=== PATIENT | female | born 1945 | race Caucasian/White ===

== ENCOUNTER 2016-07-28 08:06 | Day surgery (SDC) | payer BC ==
--- NOTE | ~2016-07-28 | EGD ---
EGD REPORT [facility] [address] [place] [id number] NAME: ANNA FERRARI : [birth year] STATUS : REG [facility]#: [id number] AGE: 70 ADM/REG DATE : 07/28/16 MR#: [id number] REPORT SERV DATE: 07/28/16 DICTATED BY: CRISTIN BAUM DATE: 07/28/16 REPORT STATUS : Draft [facility] BY: [facility] DATE: 07/28/16 [facility] Patient Name: Anna Ferrari Date of : 1945 Attending MD: CRISTIN BAUM MD Procedure Date No Time: 07/28/2016 Procedure: Colonoscopy Indications: High risk colon cancer surveillance: Personal history of non-advanced adenoma. 2 day prep. Patient Profile: Informed consent was obtained from the patient by me prior to the procedure. Risks, benefits, and alternatives were discussed including the risk of bleeding, perforation, infection, reaction to medicine, missed lesion, and cardiopulmonary complications. Referring MD: MEI SALCIDO Medicines: Monitored Anesthesia Care Complications: No immediate complications. Procedure: Pre-Anesthesia Assessment: - ASA Grade Assessment: III - A patient with severe systemic disease. After I obtained informed consent, the scope was passed under direct vision. Throughout the procedure, the patient's blood pressure, pulse, and oxygen saturations were monitored continuously. The PCF [id number] was introduced through the anus and advanced to the cecum, identified by appendiceal orifice and ileocecal valve. The colonoscope was slowly withdrawn with careful examination all mucosal surfaces including specific attention around flexures and tip deflection behind folds; retroflexion performed in rectum. The colonoscopy was performed without difficulty. The patient tolerated the procedure well. The quality of the bowel preparation was adequate. The ileocecal valve, appendiceal orifice and rectum were photographed. Findings: A sessile polyp was found at the hepatic flexure. The polyp was 5 mm in size. The polyp was removed with a cold biopsy forceps. Resection and retrieval were complete. A sessile polyp was found in the descending colon. The polyp was 5 mm in size. The polyp was removed with a cold biopsy forceps. Resection and retrieval were complete. Internal hemorrhoids were found, and they were mild. Impression: - One 5 mm polyp at the hepatic flexure. Resected and EGD REPORT [address] [place]. [address] NAME: ANNA FERRARI : [birth year] STATUS : REG [facility]#: [id number] AGE: 70 ADM/REG DATE : 07/28/16 MR#: [id number] REPORT SERV DATE: 07/28/16 DICTATED BY: CRISTIN BAUM DATE: 07/28/16 REPORT STATUS : Draft TRANSCRIBED BY: [employer] DATE: 07/28/16 retrieved. - One 5 mm polyp in the descending colon. Resected and retrieved. - Internal hemorrhoids. Recommendation: - Patient has a contact number available for emergencies. The signs and symptoms of potential delayed complications were discussed with the patient. Return to normal activities tomorrow. Written discharge instructions were provided to the patient. - Regular diet. - Continue present medications. - Await pathology results. - Repeat colonoscopy for surveillance based on pathology results. Procedure Code(s): --- Professional --- 78300, Colonoscopy, flexible, proximal to splenic flexure; with biopsy, single or multiple Diagnosis Code(s): --- Professional --- D12.4, Benign neoplasm of descending colon D12.3, Benign neoplasm of transverse colon K64.8, Other hemorrhoids Z86.010, Personal history of colonic polyps CPT copyright 2013 [employer]. All rights reserved. The codes documented in this report are preliminary and upon line out man review may be revised to meet current compliance requirements. CRISTIN BAUM MD 07/28/2016 10:14 AM This report has been signed electronically. Number of Addenda: 0 Note Initiated On: 07/28/2016 9:43 AM Scope Withdrawal Time 0 hours 14 minutes 18 seconds [address] [place] [id number]
[~2016-07-28 08:06] MED LIST: ACET500CAP PO; ALEVE220 MG PO; ALLEGRA180 PO; ALLERGY SHOTS; ASAB PO; ASMANEX 30110 MCG IN; BYSTOLIC5 MG PO; CADUET10 MG/20 M PO; CALTRA600D PO; CO Q-10100 MG PO; COZAAR100 MG PO; FLONASE NAS; FOSAMAX70 MG PO; HEMATINIC PL PO; HYDROCHLOROT12.5 MG PO; HYGROTON 25 MG25 MG OR; K-TABS10 MEQ PO; LEVOTHYROXIN100 MCG PO; LEVOTHYROXIN125 MCG PO; LEVOTHYROXIN150 MCG PO; LIPITOR20 PO; LIVALO PO; NIASPAN500 PO; NORV10 PO; PRILO PO; PROAIR HFA INH; PROTONIX PO; RANITIDINE300 MG PO; REPATHA SQ; SPIRO25 PO; SUDAFED PO; THERA TEARS OR; VALTURN1 PO; VITAMIN D31000 UNIT PO; VITD PO; ZYRTEC ALLGY10 MG PO
== END 2016-07-28 23:59 | disposition home or self-care (01) ==
LOC: DMU 08:06
PROVIDERS: Internal Medicine Gastroenterology
PROC: 0DBL8ZX Excision of Transverse Colon, Via Natural or Artificial Opening Endoscopic, Diagnostic (ICD-10-PCS; 2016-07-28)
PROC: 0DBM8ZX Excision of Descending Colon, Via Natural or Artificial Opening Endoscopic, Diagnostic (ICD-10-PCS; principal; 2016-07-28 07:00)
DX: D12.4 Benign neoplasm of descending colon (principal); D12.3 Benign neoplasm of transverse colon; K64.8 Other hemorrhoids; I10 Essential (primary) hypertension; E11.9 Type 2 diabetes mellitus without complications; E03.9 Hypothyroidism, unspecified; Z88.2 Allergy status to sulfonamides; Z86.010 Personal history of colon polyps; Z91.013 Allergy to seafood; Z88.1 Allergy status to other antibiotic agents
CPT/HCPCS: 82962; 88305